=== PATIENT | female | born 1925 | race Caucasian/White ===

== ENCOUNTER → 2016-08-29 | Outpatient (CLI) | payer OTHER ==
[2016-08-29 15:38] LABS: BASOPHILS # (AUTO) 0.04 10*3/UL; BASOPHILS % (AUTO) 0.4 % (0-1); HEMATOCRIT 38.7 % (37.0-47.0); HEMOGLOBIN 12.7 g/dL (12.0-16.0); HEMOGLOBIN A1C 7.05 % (4.2-6.0); IMM GRAN % (AUTO) 0.3 % (0-5); IMM GRAN# (AUTO) 0.03 10*3/UL; LYMPHOCYTES # (AUTO) 1.84 10*3/uL; MEAN BLOOD GLUCOSE (CALC) 148.765 mg/dL; MEAN CORPUSCULAR HEMOGLOBIN 28.2 PG (27-31); MEAN CORPUSCULAR HGB CONC 32.8 g/dL (33-37); MEAN PLATELET VOLUME 8.7 FL (7.4-12.2); MONOCYTES # (AUTO) 0.99 10*3/UL (0.3-0.8); MONOCYTES % (AUTO) 9.7 % (5-15); NEUTROPHILS # (AUTO) 7.22 10*3/UL; NEUTROPHILS % (AUTO) 70.6 % (50-80); RDW COEFFICIENT OF VARIATION 15.5 % (11.5-14.5); RED BLOOD COUNT 4.51 10^6/uL (4.20-5.40); WHITE BLOOD COUNT 10.22 10^3/uL (4.8-10.8)
[2016-08-29 15:41] LABS: BILIRUBIN,TOTAL 0.7 mg/dL (0.3-1.2); BUN/CREATININE RATIO 28.33 (6-20); CALCIUM 9.9 mg/dL (8.7-10.7); CREATININE 0.6 mg/dL (0.50-1.20); TOTAL PROTEIN 6.7 g/dL (6.1-8.0)
[2016-08-29 15:43] LABS: PLATELET MORPHOLOGY COMMENT NORMAL MORPHOLOGY (NORM)
[2016-08-29 15:46] LABS: CREATININE, URINE 58.2 MG/DL (15-500)
[2016-08-29 16:43] LABS: FREE T4 (FREE THYROXINE) 1.62 ng/dL (0.93-1.71)
== END ==
LOC: LAB 10:18
PROVIDERS: ATTEND Internal Medicine
DX: E11.9 Type 2 diabetes mellitus without complications (principal); E03.9 Hypothyroidism, unspecified; E78.5 Hyperlipidemia, unspecified; I10 Essential (primary) hypertension; M11.89 Other specified crystal arthropathies, multiple sites; R19.02 Left upper quadrant abdominal swelling, mass and lump
CPT/HCPCS: 80053; 82043; 82378; 83036; 84439; 84443; 85025; 85652

== ENCOUNTER → 2016-09-06 | Outpatient (CLI) | payer OTHER ==
--- NOTE | 2016-09-07 16:18 | DI ---
CT ABDOMEN SCAN WITH IV CONTRAST, 09/06/2016 8:18 AM : Clinical History: Palpable mass in the left upper quadrant. Previous Exam: None at this facility. Scans are performed from the lower lung bases through the liver and kidneys with IV contrast. 60 ml o f Isovue 300 was injected IV. Low density oral barium contrast (Volumen) was administered for all pha ses of the exam. The lung bases are clear. The liver is normal. The gallbladder is grossly normal. There is no abnorma lity of the spleen, pancreas, and adrenal glands. Both kidneys are normal in size, shape, and positio n. There is no solid or cystic mass of the right kidney. The left kidney has a 55 mm simple cyst that is located in the posterior portion of the mid zone. There is a second cyst measuring about 45 mm th at is also located in the mid zone but toward the anterior margin. This cyst is in a position where i t should be readily palpable and may represent the clinically identified mass of the left upper quadr ant. 2 smaller cysts are located posteriorly and would not be palpable. There is no solid mass identi fied. There is no hydronephrosis or hydroureter. No renal or ureteral calculi are present. There are no abnormal retrocrural or periaortic nodes. No ascites is present. READIN. Normal CT abdomen scan. 2. The left kidney has multiple cysts and there is one cyst measuring 45 mm in diameter that is abigail ing from the anterior margin of the mid zone of the left kidney. It is situated in the abdominal cavi ty such that it would be readily palpable and may represent the clinically detected mass of the left upper quadrant. CT PELVIS SCAN WITH IV CONTRAST, 09/06/2016 8:18 AM: Clinical History: See above. Previous Exam: None at this facility. Scans are performed from just superior to the umbilicus to the symphysis pubis with IV contrast. This is the same bolus of contrast used for the CT scans of the abdomen. Scans through the lower abdomen and pelvis show no masses or abnormal fluid collections. There is no adenopathy. The appendix is not visualized but there is no inflammatory mass in either in the cecal t ip or in the right lower quadrant. The small bowel, terminal ileum, and ileocecal valve are normal. T he colon is also normal. There are no hernias. The patient is status post hysterectomy and presumed b ilateral salpingo-oophorectomy. 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 READING: Normal CT scan of the pelvis.
== END ==
LOC: CT 08:14
PROVIDERS: ATTEND Internal Medicine
DX: R19.02 Left upper quadrant abdominal swelling, mass and lump (principal); N28.1 Cyst of kidney, acquired
CPT/HCPCS: 74177

== ENCOUNTER → 2016-09-13 | Outpatient (CLI) | payer OTHER ==
--- NOTE | 2016-09-14 14:00 | DI ---
MRI LUMBAR SPINE SCAN WITHOUT IV CONTRAST, 09/13/2016 10:13 AM: Clinical History: Lumbar radiculopathy. Previous Exam: None. Technique: Sagittal and axial T2 weighted; sagittal T1 weighted and T2 STIR; and axial PD. There is dextroscoliosis of the thoracolumbar junction with compensatory levoscoliosis of the mid lum bar spine. The vertebral bodies are of normal height and size. There is moderately severe disc space narrowing at every lumbar level and all level show desiccation change. The cord terminates at T12 and the conus medullaris is normal. There is a left anterolateral disc herniation at T10-11 but there is no canal or neural foraminal stenosis. The T11-12 disc space is normal. T12-L1 has a bulging but not herniated disc without canal or neural foraminal stenosis. L1-2 has a left anterolateral bulging but not herniated disc with left neural foraminal stenosis and without canal or right neural foraminal s tenosis. Hypertrophic changes are present in the apophyseal joints and ligamentum flavum. L2-3 has a left lateral bulging but not herniated disc with left neural foraminal stenosis. There is no canal or right neural foraminal stenosis. Hypertrophic changes are present in the apophyseal joints. L3-4 has a bulging but not herniated disc without canal or neural foraminal stenosis. There are hypertrophic changes of the apophyseal joints. L4-5 has a grade 1 spondylolisthesis with a bulging but not herniat ed disc and hypertrophic changes of the apophyseal joints. There is right neural foraminal stenosis b ut no canal or left neural foraminal stenosis. L5-S1 has a bulging but not herniated disc without can al or neural foraminal stenosis. There is a 2 cm simple cyst and a 5 cm simple cyst of the left kidne y. Readin. Left anterolateral disc herniation at T10-11 without canal or neural foraminal stenosis. 2. Bulging but not herniated disc with left neural foraminal stenosis and no canal or right neural f oraminal stenosis at L1-2. 3. Bulging left lateral disc without herniation with left neural foraminal stenosis at L2-3. There i s no canal or right neural foraminal stenosis. 4. Bulging but not herniated disc with right neural foraminal stenosis. There is a grade 1 spondylol isthesis and there is no canal or left neural foraminal stenosis. 5. Bulging but not herniated discs without canal or neural foraminal stenosis at T12-L1 and L5-S1. 6. Hypertrophic degenerative changes are present in the apophyseal joints and ligamentum flavum at L 1-2 through L4-5. The T11-12 disc spaces normal.
== END ==
LOC: MRI 10:09
PROVIDERS: ATTEND Internal Medicine
DX: M54.16 Radiculopathy, lumbar region (principal); M47.816 Spondylosis without myelopathy or radiculopathy, lumbar region; M43.16 Spondylolisthesis, lumbar region; M47.814 Spondylosis without myelopathy or radiculopathy, thoracic region
CPT/HCPCS: 72148

== ENCOUNTER → 2016-09-18 | Outpatient (CLI) | payer OTHER ==
--- NOTE | 2016-09-18 20:36 | DI ---
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 Previous Exam: 03/26/2010. Upright AP and lateral and upright lateral flexion and extension views are submitted. The vertebral b odies are of normal height and size, but the patient has developed marked dextroscoliosis of the thor acolumbar junction since the previous exam. In addition, the patient has had a right hip replacement since that last study. There is diffuse osteoporosis. Disc space narrowing is present at every lumbar level and at T12-L1. There is a grade 1 spondylolisthesis at L4-5 and no instability is noted with f lexion and extension maneuvers. The pedicles are normal. Severe degenerative arthritis is present in the L1-2 apophyseal joints bilaterally and on the right side involving the L4-5 and L5-S1 apophyseal joints. The other levels also show degenerative arthritic change but not as severe. Both SI joints ar e normal. Readin. Diffuse disc space narrowing is present from T12-L1 through L5-S1. The patient has developed sign ificant dextroscoliosis of the thoracolumbar junction since the previous study. 2. There is a grade 1 spondylolisthesis at L4-5 without evidence of instability with flexion and ext ension maneuvers. 3. Diffuse arthritic changes are present in all of the apophyseal joints bilaterally but most severe ly at L1-2 bilaterally are on the right side at L4-5 and L5-S1. 4. Osteoporosis. The patient has had both hips replaced.
== END ==
LOC: MOB RAD 15:00
PROVIDERS: ATTEND Physician Assistant
DX: M47.26 Other spondylosis with radiculopathy, lumbar region (principal); M48.05 Spinal stenosis, thoracolumbar region; M43.16 Spondylolisthesis, lumbar region
CPT/HCPCS: 72110

== ENCOUNTER → 2016-09-24 | Outpatient (CLI) | payer OTHER | LOC: MMPC 10:00 | PROVIDERS: ATTEND Neurological Surgery | DX: M41.86 Other forms of scoliosis, lumbar region (principal); M25.78 Osteophyte, vertebrae; M48.06 Spinal stenosis, lumbar region; M47.817 Spondylosis without myelopathy or radiculopathy, lumbosacral region | CPT/HCPCS: 99213; G0463 ==

== ENCOUNTER → 2016-11-21 | Outpatient (CLI) | payer OTHER ==
[2016-11-21 15:51] LABS: HEMOGLOBIN A1C 7.11 % (4.2-6.0)
== END ==
LOC: LAB 08:18
PROVIDERS: ATTEND Internal Medicine
DX: E11.65 Type 2 diabetes mellitus with hyperglycemia (principal)
CPT/HCPCS: 83036

== ENCOUNTER → 2016-11-26 | Outpatient (CLI) | payer OTHER | LOC: LAB 14:59 | PROVIDERS: ATTEND Internal Medicine | DX: E03.9 Hypothyroidism, unspecified (principal) | CPT/HCPCS: 84443 ==

== ENCOUNTER → 2016-11-28 | Outpatient (CLI) | payer OTHER | LOC: MMPC 11:11 | PROVIDERS: ATTEND Internal Medicine | DX: E11.9 Type 2 diabetes mellitus without complications (principal); M15.9 Polyosteoarthritis, unspecified; E78.2 Mixed hyperlipidemia; E78.5 Hyperlipidemia, unspecified ==